=== PATIENT | female | born 1935 | race Caucasian/White ===

== ENCOUNTER → 2021-03-22 | Outpatient (CLI) | payer MEDICARE, BC ==
[~2021-03-22] MED LIST: ELIQUIS2.5 MG PO; METOPROLOL SUCC25 MG PO; NEXIUM40 MG PO; NORCO 10-325 T1 EACH PO; SOTALOL80 MG PO
== END ==
LOC: HEART 5 08:44
DX: R60.9 Edema, unspecified (principal); Z79.899 Other long term (current) drug therapy
CPT/HCPCS: 71046; 94010; 94729

== ENCOUNTER → 2021-11-01 | Outpatient (CLI) | payer MEDICARE, BC | LOC: HEART 5 13:06 | DX: I48.91 Unspecified atrial fibrillation (principal); I47.1 Supraventricular tachycardia ==

== ENCOUNTER → 2022-02-08 | Outpatient (CLI) | payer MEDICARE, BC | LOC: HEART 5 15:00 | DX: I48.92 Unspecified atrial flutter (principal); I47.1 Supraventricular tachycardia; I47.2 Ventricular tachycardia ==

== ENCOUNTER → 2022-03-05 | Outpatient (CLI) | payer MEDICARE, BC ==
[2022-03-05 10:15] LABS: HEMOGLOBIN 12.9 gm/dl (12.3-15.3); RED BLOOD COUNT 4.91 M/UL (4.00-5.10); WHITE BLOOD COUNT 5.8 K/UL (4.5-11.0)
[2022-03-05 10:37] LABS: BUN/CREATININE RATIO 18 (0-10)
== END ==
LOC: ECHO 09:15
PROVIDERS: Internal Medicine Cardiovascular Disease
DX: I49.5 Sick sinus syndrome (principal); R00.2 Palpitations; I48.91 Unspecified atrial fibrillation; I27.20 Pulmonary hypertension, unspecified; I08.3 Combined rheumatic disorders of mitral, aortic and tricuspid valves
CPT/HCPCS: ECHO; 71046; 80048; 85025; 93306

== ENCOUNTER 2022-03-07 06:21 | Outpatient (CLI) | payer MEDICARE, BC ==
[~2022-03-07] VITALS: Ht 157.5 cm; Wt 77.6 kg
[2022-03-07] MEDS ORDERED: LEVOFLOXACIN500 MG PO (10:39)
[2022-03-07] MEDS ORDERED: CLEOCIN HCL300 MG PO (10:39)
[2022-03-07] MEDS ORDERED: HYDROCODON-ACE1 EAC4 PO (10:39)
== END 2022-03-08 09:40 | disposition home or self-care (01) ==
LOC: CATH 06:21 → PROG CARE 11:11 → CATH 03-08 09:40
DX: I49.5 Sick sinus syndrome (principal); I45.10 Unspecified right bundle-branch block; I44.4 Left anterior fascicular block; I48.0 Paroxysmal atrial fibrillation; I44.1 Atrioventricular block, second degree; I48.92 Unspecified atrial flutter; I10 Essential (primary) hypertension; Z95.0 Presence of cardiac pacemaker; K21.9 Gastro-esophageal reflux disease without esophagitis; Z79.01 Long term (current) use of anticoagulants; Z79.899 Other long term (current) drug therapy
CPT/HCPCS: 33208; 71045; 93005; 99152; 99153; C1898; C2621; J0690; J1644; J2250; J2270; J3010; J3370; J7040